=== PATIENT | male | born 1960 | race Caucasian/White ===

== ENCOUNTER 2023-04-27 11:24 | Inpatient (IN) | payer OTHER ==
[2023-04-27 13:28] VITALS: BMI 44.9
[2023-04-27] MEDS ORDERED: LOPERAMIDE HCL 2 MG CAPSULE PO PRN (15:42)
[2023-04-27] MEDS ORDERED: NALOXONE HCL 0.4 MG/ML VIAL IM PRN (15:42)
[2023-04-27] MEDS ORDERED: MAGNESIUM HYDROX 2400MG/30ML ORAL SUSPENSION 30 ML CUP PO PRN (15:42)
[2023-04-27] MEDS ORDERED: POLYETHYLENE GLYCOL (HEALTHYLAX) 3350 17 GM PACKET PO PRN (15:42)
[2023-04-27] MEDS ORDERED: BENZOCAINE/MENTHOL (CHLORASEPTIC ) LOZENGE MM PRN (15:42)
[2023-04-27] MEDS ORDERED: IBUPROFEN 600 MG TABLET (FP) PO PRN (15:42)
[2023-04-27] MEDS ORDERED: BISMUTH SUBSALICYLATE 524 MG/30 ML PO PRN (15:42)
[2023-04-27] MEDS ORDERED: NICOTINE POLACRILEX 2 MG GUM BUC PRN (15:42)
[2023-04-27] MEDS ORDERED: chlordiazePOXIDE HCL 25 MG CAPSULE PO PRN (15:42)
[2023-04-27] MEDS ORDERED: guaiFENesin 600 MG TABLET.ER (FP) PO PRN (15:42)
[2023-04-27] MEDS ORDERED: IBUPROFEN 400 MG TABLET (FP) PO PRN (15:42)
[2023-04-27] MEDS ORDERED: NALOXONE HCL (KLOXXADO) 8 MG SPRAY NS PRN (15:42)
[2023-04-27] MEDS ORDERED: ACETAMINOPHEN 325 MG TABLET (FP) PO PRN (15:42)
[2023-04-27] MEDS ORDERED: BENZONATATE 200 MG CAPSULE PO PRN (15:42)
[2023-04-27] MEDS ORDERED: DICYCLOMINE HCL 10 MG CAPSULE PO PRN (15:42)
[2023-04-27] MEDS ORDERED: ONDANSETRON *ODT* 4 MG TABLET SL PRN (15:42)
[2023-04-27] MEDS ORDERED: chlordiazePOXIDE HCL 25 MG CAPSULE ONE (17:01)
[2023-04-27] MEDS: chlordiazePOXIDE HCL 25 MG CAPSULE PO SCH ×2 (17:05→22:24)
[2023-04-27] MEDS: amLODIPine BESYLATE 10 MG TABLET (FP) PO SCH (19:35)
[2023-04-27] MEDS: MELATONIN 5 MG TABLETS PO SCH (22:24)
[2023-04-27] MEDS: THIAMINE HCL 100 MG TABLET (FP) PO SCH (22:24)
[2023-04-27 22:28] LABS: PH,URINE 5.5 (5.0-8.0); URINE APPEARANCE CLEAR; URINE BILIRUBIN NEGATIVE (NEGATIVE); URINE COLOR YELLOW; URINE GLUCOSE (UA) NEGATIVE (NEGATIVE); URINE KETONE NEGATIVE (NEGATIVE); URINE LEUK ESTERASE NEGATIVE (NEGATIVE); URINE NITRITE NEGATIVE (NEGATIVE); URINE PROTEIN NEGATIVE (NEGATIVE); URINE UROBILINOGEN 0.2 mg/dL (0.2-1.0)
[2023-04-28] MEDS: chlordiazePOXIDE HCL 25 MG CAPSULE PO SCH ×4 (05:50→22:45)
[2023-04-28] MEDS: NICOTINE 21 MG/24 HOURS TOPICAL PATCH TD SCH (10:02)
[2023-04-28] MEDS: hydrOXYzine PAMOATE 25 MG CAPSULE (FP) PO PRN (10:03)
[2023-04-28] MEDS: PRENATAL VITAMINS W/ FOLIC ACID TABLET (FP) PO SCH (10:03)
[2023-04-28] MEDS: METHOCARBAMOL 500 MG TABLET PO PRN (10:03)
[2023-04-28] MEDS: amLODIPine BESYLATE 10 MG TABLET (FP) PO SCH (10:03)
[2023-04-28 10:14] LABS: HEMATOCRIT 39.6 % (35.4-49); HEMOGLOBIN 13.1 GM/dL (11.7-16.9); MCH 29.4 pg (25.7-33.7); MEAN CELL VOLUME 89.1 fl (80-96); MEAN PLT VOLUME 7.5 fl (7.5-11.1); PLATELET COUNT 450 10^3/uL (134-434); RBC 4.45 M/mm3 (4.00-5.60); RDW 14.2 % (11.9-15.9); WHITE BLOOD COUNT 9.6 K/mm3 (4.0-10.0)
[2023-04-28 10:40] LABS: CHLORIDE 102 mmol/L (98-107); POTASSIUM 4.2 mmol/L (3.5-5.1); SODIUM 138 mmol/L (136-145)
[2023-04-28 10:42] LABS: BLOOD UREA NITROGEN 11.8 mg/dL (7-18); CALCIUM 8.3 mg/dL (8.5-10.1)
[2023-04-28 10:43] LABS: ALBUMIN 3.1 g/dl (3.4-5.0); ANION GAP 3 mmol/L (4-13); CO2 33 mmol/L (21-32); GLUCOSE,RANDOM 94 mg/dL (74-106)
[2023-04-28 10:46] LABS: CREATININE 0.9 mg/dL (0.55-1.3); SGOT/AST 31 U/L (15-37); SGPT/ALT 51 U/L (13-61)
[2023-04-28 10:48] LABS: BILIRUBIN,TOTAL 0.2 mg/dL (0.2-1); TOT PROT 6.4 g/dl (6.4-8.2)
[2023-04-28 10:49] LABS: ALK PHOS 92 U/L (45-117)
[2023-04-28] MEDS: ALBUTEROL SO4 2.5/IPRATROPIUM 0.5 INH SOL 3 ML VIAL.NEB. NEB SCH (19:00)
[2023-04-28] MEDS: predniSONE 20 MG TABLET (UD) PO SCH (19:10)
[2023-04-28] MEDS: THIAMINE HCL 100 MG TABLET (FP) PO SCH (22:45)
[2023-04-28] MEDS: MELATONIN 5 MG TABLETS PO SCH (22:49)
[2023-04-29] MEDS: chlordiazePOXIDE HCL 25 MG CAPSULE PO SCH ×4 (04:46→22:18)
[2023-04-29] MEDS: ALBUTEROL SO4 2.5/IPRATROPIUM 0.5 INH SOL 3 ML VIAL.NEB. NEB SCH ×4 (08:45→20:31)
[2023-04-29] MEDS: METHOCARBAMOL 500 MG TABLET PO PRN ×2 (10:28→22:19)
[2023-04-29] MEDS: PRENATAL VITAMINS W/ FOLIC ACID TABLET (FP) PO SCH (10:28)
[2023-04-29] MEDS: LISINOPRIL 10 MG TABLET PO SCH (10:28)
[2023-04-29] MEDS: hydrOXYzine PAMOATE 25 MG CAPSULE (FP) PO PRN (10:28)
[2023-04-29] MEDS: amLODIPine BESYLATE 10 MG TABLET (FP) PO SCH (10:28)
[2023-04-29] MEDS: predniSONE 20 MG TABLET (UD) PO SCH (10:31)
[2023-04-29] MEDS: BUDESONIDE/FORMETEROL FUMARATE 160/4.5 mcg INHALER IH SCH ×2 (10:31→22:19)
[2023-04-29] MEDS: NICOTINE 21 MG/24 HOURS TOPICAL PATCH TD SCH (10:32)
[2023-04-29] MEDS: MAG HYDROX/AL HYDROX/SIMETH 30 ML UNIT-DOSE CUP PO PRN (21:18)
[2023-04-29] MEDS: MELATONIN 5 MG TABLETS PO SCH (22:19)
[2023-04-29] MEDS: THIAMINE HCL 100 MG TABLET (FP) PO SCH (22:19)
[2023-04-30] MEDS ORDERED: chlordiazePOXIDE HCL 10 MG CAPSULE PO PRN
[2023-04-30] MEDS: ALBUTEROL SO4 2.5/IPRATROPIUM 0.5 INH SOL 3 ML VIAL.NEB. NEB SCH ×3 (00:28→07:43)
[2023-04-30] MEDS: chlordiazePOXIDE HCL 10 MG CAPSULE PO SCH ×4 (05:50→22:45)
[2023-04-30] MEDS: amLODIPine BESYLATE 10 MG TABLET (FP) PO SCH (10:59)
[2023-04-30] MEDS: PRENATAL VITAMINS W/ FOLIC ACID TABLET (FP) PO SCH (10:59)
[2023-04-30] MEDS: NICOTINE 21 MG/24 HOURS TOPICAL PATCH TD SCH (10:59)
[2023-04-30] MEDS: guaiFENesin/D-METHORPHAN TAB.ER.12H PO SCH ×2 (10:59→23:38)
[2023-04-30] MEDS: LISINOPRIL 10 MG TABLET PO SCH (10:59)
[2023-04-30] MEDS: BUDESONIDE/FORMETEROL FUMARATE 160/4.5 mcg INHALER IH SCH ×2 (11:00→22:45)
[2023-04-30] MEDS: predniSONE 20 MG TABLET (UD) PO SCH (11:01)
[2023-04-30] MEDS ORDERED: ALBUTEROL SO4 2.5/IPRATROPIUM 0.5 INH SOL 3 ML VIAL.NEB. NEB PRN (15:05)
[2023-04-30] MEDS ORDERED: ALBUTEROL SO4 2.5/IPRATROPIUM 0.5 INH SOL 3 ML VIAL.NEB. NEB SCH (15:15)
[2023-04-30] MEDS: METHOCARBAMOL 500 MG TABLET PO PRN (22:44)
[2023-04-30] MEDS: THIAMINE HCL 100 MG TABLET (FP) PO SCH (22:44)
[2023-04-30] MEDS: MELATONIN 5 MG TABLETS PO SCH (22:45)
[2023-05-01] MEDS: chlordiazePOXIDE HCL 10 MG CAPSULE PO SCH ×2 (05:48→17:14)
[2023-05-01] MEDS: amLODIPine BESYLATE 10 MG TABLET (FP) PO SCH (10:11)
[2023-05-01] MEDS: PRENATAL VITAMINS W/ FOLIC ACID TABLET (FP) PO SCH (10:11)
[2023-05-01] MEDS: NICOTINE 21 MG/24 HOURS TOPICAL PATCH TD SCH (10:11)
[2023-05-01] MEDS: LISINOPRIL 10 MG TABLET PO SCH (10:12)
[2023-05-01] MEDS: predniSONE 20 MG TABLET (UD) PO SCH (10:12)
[2023-05-01] MEDS: BUDESONIDE/FORMETEROL FUMARATE 160/4.5 mcg INHALER IH SCH ×2 (10:12→22:45)
[2023-05-01] MEDS: METHOCARBAMOL 500 MG TABLET PO PRN (10:13)
[2023-05-01] MEDS: hydrOXYzine PAMOATE 25 MG CAPSULE (FP) PO PRN ×2 (10:13→22:44)
[2023-05-01] MEDS: guaiFENesin 600 MG TABLET.ER (FP) PO SCH ×2 (10:20→22:45)
[2023-05-01] MEDS: THIAMINE HCL 100 MG TABLET (FP) PO SCH (22:44)
[2023-05-01] MEDS: MELATONIN 5 MG TABLETS PO SCH (22:44)
[2023-05-02] MEDS ORDERED: chlordiazePOXIDE HCL 10 MG CAPSULE PO ONE (05:00)
[2023-05-02] MEDS: PRENATAL VITAMINS W/ FOLIC ACID TABLET (FP) PO SCH (09:55)
[2023-05-02] MEDS: predniSONE 20 MG TABLET (UD) PO SCH (09:55)
[2023-05-02] MEDS: guaiFENesin 600 MG TABLET.ER (FP) PO SCH (09:55)
[2023-05-02] MEDS: amLODIPine BESYLATE 10 MG TABLET (FP) PO SCH (09:56)
[2023-05-02] MEDS: LISINOPRIL 10 MG TABLET PO SCH (09:56)
[2023-05-02] MEDS: NICOTINE 21 MG/24 HOURS TOPICAL PATCH TD SCH (09:57)
[2023-05-02] MEDS: BUDESONIDE/FORMETEROL FUMARATE 160/4.5 mcg INHALER IH SCH (09:57)
[2023-05-02] MEDS: MAG HYDROX/AL HYDROX/SIMETH 30 ML UNIT-DOSE CUP PO PRN (10:40)
[2023-05-02 12:56] VITALS: BP 144/75; PULSE 90; RESP 17; TEMP 97.7
== END 2023-05-02 13:05 | disposition other institution (70) | DRG 775 ==
LOC: SUATTDRO 11:24 → YASAS 11:24 → Y6N 16:38
PROVIDERS: ADMIT Allergy & Immunology; ATTEND Surgery
PROC: HZ2ZZZZ Detoxification Services for Substance Abuse Treatment (ICD-10-PCS; principal; 2023-04-27)
DX: F10.230 Alcohol dependence with withdrawal, uncomplicated (principal); F17.210 Nicotine dependence, cigarettes, uncomplicated; F32.A Depression, unspecified; G47.00 Insomnia, unspecified; I10 Essential (primary) hypertension; J44.1 Chronic obstructive pulmonary disease with (acute) exacerbation; E66.01 Morbid (severe) obesity due to excess calories; Z68.41 Body mass index [BMI] 40.0-44.9, adult; Z99.81 Dependence on supplemental oxygen; Z28.310 Unvaccinated for COVID-19; Z28.9 Immunization not carried out for unspecified reason; Z56.0 Unemployment, unspecified; Z59.00 Homelessness unspecified
CPT/HCPCS: 36415; 71046-TC-FY; 80053; 80307; 81003; 85027; 86780; 87635; 93005; 93010; 94640

== ENCOUNTER 2023-05-02 15:07 | Inpatient (IN) | payer OTHER ==
[~2023-05-02 15:07] MED LIST: ALBUTEROL SO4 0.083% IH SOL 2.5 MG/3 ML VIAL.NEB. NEB PRN; BENZONATATE 200 MG CAPSULE PO PRN; COLLOIDAL OATMEAL 1 BAR EACH TP PRN; IBUPROFEN 400 MG TABLET (FP) PO PRN; LOPERAMIDE HCL 2 MG CAPSULE PO PRN; MAGNESIUM HYDROX 2400MG/30ML ORAL SUSPENSION 30 ML CUP PO PRN; METHOCARBAMOL 500 MG TABLET PO PRN; NICOTINE 21 MG/24 HOURS TOPICAL PATCH TD PRN; NICOTINE POLACRILEX 4 MG GUM BUC PRN; POLYETHYLENE GLYCOL (HEALTHYLAX) 3350 17 GM PACKET PO PRN; guaiFENesin 600 MG TABLET.ER (FP) PO PRN
[2023-05-02] MEDS: MELATONIN 5 MG TABLETS PO SCH (21:15)
[2023-05-02] MEDS: THIAMINE HCL 100 MG TABLET (FP) PO SCH (21:15)
[2023-05-02] MEDS: MAG HYDROX/AL HYDROX/SIMETH 30 ML UNIT-DOSE CUP PO PRN (23:57)
[2023-05-03] MEDS: LISINOPRIL 10 MG TABLET PO SCH (10:25)
[2023-05-03] MEDS: PRENATAL VITAMINS W/ FOLIC ACID TABLET (FP) PO SCH (10:25)
[2023-05-03] MEDS: amLODIPine BESYLATE 10 MG TABLET (FP) PO SCH (10:25)
[2023-05-03] MEDS: MAG HYDROX/AL HYDROX/SIMETH 30 ML UNIT-DOSE CUP PO PRN (11:17)
[2023-05-03] MEDS ORDERED: PNEUMOC 20-VAL CONJ-DIP CRM/PF 0.5 ML SYRINGE IM ONE (12:00)
[2023-05-03] MEDS ORDERED: FLU VACCINE (FLULAVAL) PF 60 MCG/0.5 ML SYRINGE 2023-2024 IM ONE (12:00)
[2023-05-03] MEDS: BUDESONIDE/FORMETEROL FUMARATE 160/4.5 mcg INHALER IH SCH (21:38)
[2023-05-03] MEDS: THIAMINE HCL 100 MG TABLET (FP) PO SCH (21:39)
[2023-05-03] MEDS: MELATONIN 5 MG TABLETS PO SCH (21:39)
[2023-05-04] MEDS: BUDESONIDE/FORMETEROL FUMARATE 160/4.5 mcg INHALER IH SCH ×2 (10:22→21:51)
[2023-05-04] MEDS: LISINOPRIL 10 MG TABLET PO SCH (10:23)
[2023-05-04] MEDS: FLUoxetine HCL 10 MG CAPSULE PO SCH (10:23)
[2023-05-04] MEDS: hydrOXYzine PAMOATE 25 MG CAPSULE (FP) PO PRN ×2 (10:24→15:57)
[2023-05-04] MEDS: PRENATAL VITAMINS W/ FOLIC ACID TABLET (FP) PO SCH (10:24)
[2023-05-04] MEDS: amLODIPine BESYLATE 10 MG TABLET (FP) PO SCH (10:24)
[2023-05-04] MEDS: MAG HYDROX/AL HYDROX/SIMETH 30 ML UNIT-DOSE CUP PO PRN ×2 (10:56→21:52)
[2023-05-04] MEDS: THIAMINE HCL 100 MG TABLET (FP) PO SCH (21:52)
[2023-05-04] MEDS: MELATONIN 5 MG TABLETS PO SCH (21:52)
[2023-05-05] MEDS: hydrOXYzine PAMOATE 25 MG CAPSULE (FP) PO PRN (06:56)
[2023-05-05] MEDS: LISINOPRIL 10 MG TABLET PO SCH (10:21)
[2023-05-05] MEDS: amLODIPine BESYLATE 10 MG TABLET (FP) PO SCH (10:21)
[2023-05-05] MEDS: PRENATAL VITAMINS W/ FOLIC ACID TABLET (FP) PO SCH (10:21)
[2023-05-05] MEDS: FLUoxetine HCL 10 MG CAPSULE PO SCH (10:21)
[2023-05-05] MEDS: BUDESONIDE/FORMETEROL FUMARATE 160/4.5 mcg INHALER IH SCH ×2 (10:22→21:22)
[2023-05-05] MEDS: THIAMINE HCL 100 MG TABLET (FP) PO SCH (21:22)
[2023-05-05] MEDS: MELATONIN 5 MG TABLETS PO SCH (21:22)
[2023-05-05] MEDS: MAG HYDROX/AL HYDROX/SIMETH 30 ML UNIT-DOSE CUP PO PRN (21:22)
[2023-05-06] MEDS: FLUoxetine HCL 10 MG CAPSULE PO SCH (10:21)
[2023-05-06] MEDS: LISINOPRIL 10 MG TABLET PO SCH (10:21)
[2023-05-06] MEDS: amLODIPine BESYLATE 10 MG TABLET (FP) PO SCH (10:21)
[2023-05-06] MEDS: PRENATAL VITAMINS W/ FOLIC ACID TABLET (FP) PO SCH (10:21)
[2023-05-06] MEDS: BUDESONIDE/FORMETEROL FUMARATE 160/4.5 mcg INHALER IH SCH ×2 (10:21→21:36)
[2023-05-06] MEDS: ACETAMINOPHEN 325 MG TABLET (FP) PO PRN (17:02)
[2023-05-06] MEDS: THIAMINE HCL 100 MG TABLET (FP) PO SCH (21:40)
[2023-05-06] MEDS: MELATONIN 5 MG TABLETS PO SCH (21:40)
[2023-05-07] MEDS: hydrOXYzine PAMOATE 25 MG CAPSULE (FP) PO PRN (01:19)
[2023-05-07] MEDS: FLUoxetine HCL 10 MG CAPSULE PO SCH (10:27)
[2023-05-07] MEDS: LISINOPRIL 10 MG TABLET PO SCH (10:27)
[2023-05-07] MEDS: amLODIPine BESYLATE 10 MG TABLET (FP) PO SCH (10:27)
[2023-05-07] MEDS: PRENATAL VITAMINS W/ FOLIC ACID TABLET (FP) PO SCH (10:27)
[2023-05-07] MEDS: BUDESONIDE/FORMETEROL FUMARATE 160/4.5 mcg INHALER IH SCH ×2 (10:27→22:12)
[2023-05-07] MEDS: MAG HYDROX/AL HYDROX/SIMETH 30 ML UNIT-DOSE CUP PO PRN (10:28)
[2023-05-07] MEDS: MELATONIN 5 MG TABLETS PO SCH (22:10)
[2023-05-07] MEDS: THIAMINE HCL 100 MG TABLET (FP) PO SCH (22:10)
[2023-05-08] MEDS: hydrOXYzine PAMOATE 25 MG CAPSULE (FP) PO PRN (01:40)
[2023-05-08] MEDS: BUDESONIDE/FORMETEROL FUMARATE 160/4.5 mcg INHALER IH SCH ×2 (09:54→21:26)
[2023-05-08] MEDS: LISINOPRIL 10 MG TABLET PO SCH (09:54)
[2023-05-08] MEDS: FLUoxetine HCL 10 MG CAPSULE PO SCH (09:55)
[2023-05-08] MEDS: amLODIPine BESYLATE 10 MG TABLET (FP) PO SCH (09:55)
[2023-05-08] MEDS: PRENATAL VITAMINS W/ FOLIC ACID TABLET (FP) PO SCH (09:55)
[2023-05-08] MEDS: THIAMINE HCL 100 MG TABLET (FP) PO SCH (21:24)
[2023-05-08] MEDS: MELATONIN 5 MG TABLETS PO SCH (21:24)
[2023-05-09] MEDS: FLUoxetine HCL 10 MG CAPSULE PO SCH (10:22)
[2023-05-09] MEDS: PRENATAL VITAMINS W/ FOLIC ACID TABLET (FP) PO SCH (10:22)
[2023-05-09] MEDS: amLODIPine BESYLATE 10 MG TABLET (FP) PO SCH (10:22)
[2023-05-09] MEDS: LISINOPRIL 10 MG TABLET PO SCH (10:22)
[2023-05-09] MEDS: IBUPROFEN 600 MG TABLET (FP) PO PRN (10:23)
[2023-05-09] MEDS: BUDESONIDE/FORMETEROL FUMARATE 160/4.5 mcg INHALER IH SCH ×2 (10:24→22:19)
[2023-05-09] MEDS: MELATONIN 5 MG TABLETS PO SCH (22:18)
[2023-05-09] MEDS: THIAMINE HCL 100 MG TABLET (FP) PO SCH (22:19)
[2023-05-10] MEDS: PRENATAL VITAMINS W/ FOLIC ACID TABLET (FP) PO SCH (10:06)
[2023-05-10] MEDS: BUDESONIDE/FORMETEROL FUMARATE 160/4.5 mcg INHALER IH SCH ×2 (10:06→21:16)
[2023-05-10] MEDS: LISINOPRIL 10 MG TABLET PO SCH (10:07)
[2023-05-10] MEDS: FLUoxetine HCL 10 MG CAPSULE PO SCH (10:07)
[2023-05-10] MEDS: amLODIPine BESYLATE 10 MG TABLET (FP) PO SCH (10:07)
[2023-05-10] MEDS: THIAMINE HCL 100 MG TABLET (FP) PO SCH (21:16)
[2023-05-10] MEDS: MELATONIN 5 MG TABLETS PO SCH (21:16)
[2023-05-11] MEDS: BUDESONIDE/FORMETEROL FUMARATE 160/4.5 mcg INHALER IH SCH ×2 (09:47→21:31)
[2023-05-11] MEDS: LISINOPRIL 10 MG TABLET PO SCH (09:48)
[2023-05-11] MEDS: ACETAMINOPHEN 325 MG TABLET (FP) PO PRN (09:48)
[2023-05-11] MEDS: amLODIPine BESYLATE 10 MG TABLET (FP) PO SCH (09:48)
[2023-05-11] MEDS: PRENATAL VITAMINS W/ FOLIC ACID TABLET (FP) PO SCH (09:48)
[2023-05-11] MEDS: FLUoxetine HCL 10 MG CAPSULE PO SCH (09:48)
[2023-05-11] MEDS: THIAMINE HCL 100 MG TABLET (FP) PO SCH (21:31)
[2023-05-11] MEDS: MELATONIN 5 MG TABLETS PO SCH (21:31)
[2023-05-12] MEDS: PRENATAL VITAMINS W/ FOLIC ACID TABLET (FP) PO SCH (09:31)
[2023-05-12] MEDS: FLUoxetine HCL 10 MG CAPSULE PO SCH (09:31)
[2023-05-12] MEDS: LISINOPRIL 10 MG TABLET PO SCH (09:31)
[2023-05-12] MEDS: amLODIPine BESYLATE 10 MG TABLET (FP) PO SCH (09:31)
[2023-05-12] MEDS: BUDESONIDE/FORMETEROL FUMARATE 160/4.5 mcg INHALER IH SCH ×2 (09:31→21:30)
[2023-05-12] MEDS: ALBUTEROL SO4 HFA INHALER IH PRN (09:33)
[2023-05-12] MEDS: THIAMINE HCL 100 MG TABLET (FP) PO SCH (21:30)
[2023-05-12] MEDS: MELATONIN 5 MG TABLETS PO SCH (21:30)
[2023-05-13] MEDS: hydrOXYzine PAMOATE 25 MG CAPSULE (FP) PO PRN (06:06)
[2023-05-13] MEDS: ALBUTEROL SO4 HFA INHALER IH PRN (06:06)
[2023-05-13] MEDS: ALBUTEROL SO4 2.5/IPRATROPIUM 0.5 INH SOL 3 ML VIAL.NEB. NEB PRN (08:55)
[2023-05-13] MEDS: PRENATAL VITAMINS W/ FOLIC ACID TABLET (FP) PO SCH (09:59)
[2023-05-13] MEDS: FLUoxetine HCL 10 MG CAPSULE PO SCH (10:00)
[2023-05-13] MEDS: LISINOPRIL 10 MG TABLET PO SCH (10:00)
[2023-05-13] MEDS: amLODIPine BESYLATE 10 MG TABLET (FP) PO SCH (10:00)
[2023-05-13] MEDS: BUDESONIDE/FORMETEROL FUMARATE 160/4.5 mcg INHALER IH SCH ×2 (10:01→21:40)
[2023-05-13] MEDS: MELATONIN 5 MG TABLETS PO SCH (21:40)
[2023-05-13] MEDS: THIAMINE HCL 100 MG TABLET (FP) PO SCH (21:40)
[2023-05-14] MEDS: ALBUTEROL SO4 HFA INHALER IH PRN (06:10)
[2023-05-14] MEDS: hydrOXYzine PAMOATE 25 MG CAPSULE (FP) PO PRN (06:11)
[2023-05-14] MEDS: ALBUTEROL SO4 2.5/IPRATROPIUM 0.5 INH SOL 3 ML VIAL.NEB. NEB PRN (08:38)
[2023-05-14] MEDS: amLODIPine BESYLATE 10 MG TABLET (FP) PO SCH (09:20)
[2023-05-14] MEDS: LISINOPRIL 10 MG TABLET PO SCH (09:20)
[2023-05-14] MEDS: FLUoxetine HCL 10 MG CAPSULE PO SCH (09:20)
[2023-05-14] MEDS: PRENATAL VITAMINS W/ FOLIC ACID TABLET (FP) PO SCH (09:20)
[2023-05-14] MEDS: BUDESONIDE/FORMETEROL FUMARATE 160/4.5 mcg INHALER IH SCH ×2 (09:20→21:30)
[2023-05-14] MEDS: THIAMINE HCL 100 MG TABLET (FP) PO SCH (21:30)
[2023-05-14] MEDS: MELATONIN 5 MG TABLETS PO SCH (21:30)
[2023-05-15] MEDS: PRENATAL VITAMINS W/ FOLIC ACID TABLET (FP) PO SCH (09:21)
[2023-05-15] MEDS: BUDESONIDE/FORMETEROL FUMARATE 160/4.5 mcg INHALER IH SCH ×2 (09:21→21:20)
[2023-05-15] MEDS: ALBUTEROL SO4 2.5/IPRATROPIUM 0.5 INH SOL 3 ML VIAL.NEB. NEB PRN (09:21)
[2023-05-15] MEDS: FLUoxetine HCL 10 MG CAPSULE PO SCH (09:37)
[2023-05-15] MEDS: amLODIPine BESYLATE 10 MG TABLET (FP) PO SCH (10:21)
[2023-05-15] MEDS: LISINOPRIL 10 MG TABLET PO SCH (10:21)
[2023-05-15] MEDS: RIFAXIMIN 550 MG TABLET PO SCH ×2 (14:27→21:20)
[2023-05-15] MEDS: MELATONIN 5 MG TABLETS PO SCH (21:20)
[2023-05-15] MEDS: THIAMINE HCL 100 MG TABLET (FP) PO SCH (21:20)
[2023-05-16] MEDS: ALBUTEROL SO4 HFA INHALER IH PRN (06:33)
[2023-05-16] MEDS: hydrOXYzine PAMOATE 25 MG CAPSULE (FP) PO PRN (06:34)
[2023-05-16] MEDS: ALBUTEROL SO4 2.5/IPRATROPIUM 0.5 INH SOL 3 ML VIAL.NEB. NEB PRN (08:31)
[2023-05-16] MEDS: BUDESONIDE/FORMETEROL FUMARATE 160/4.5 mcg INHALER IH SCH ×2 (10:09→21:19)
[2023-05-16] MEDS: FLUoxetine HCL 10 MG CAPSULE PO SCH (10:10)
[2023-05-16] MEDS: LISINOPRIL 10 MG TABLET PO SCH (10:10)
[2023-05-16] MEDS: RIFAXIMIN 550 MG TABLET PO SCH ×2 (10:10→21:19)
[2023-05-16] MEDS: amLODIPine BESYLATE 10 MG TABLET (FP) PO SCH (10:10)
[2023-05-16] MEDS: PRENATAL VITAMINS W/ FOLIC ACID TABLET (FP) PO SCH (10:10)
[2023-05-16] MEDS: MELATONIN 5 MG TABLETS PO SCH (21:19)
[2023-05-16] MEDS: THIAMINE HCL 100 MG TABLET (FP) PO SCH (21:19)
[2023-05-17] MEDS: hydrOXYzine PAMOATE 25 MG CAPSULE (FP) PO PRN (06:14)
[2023-05-17] MEDS: ALBUTEROL SO4 HFA INHALER IH PRN (06:14)
[2023-05-17] MEDS: LISINOPRIL 10 MG TABLET PO SCH (09:17)
[2023-05-17] MEDS: PRENATAL VITAMINS W/ FOLIC ACID TABLET (FP) PO SCH (09:17)
[2023-05-17] MEDS: FLUoxetine HCL 10 MG CAPSULE PO SCH (09:17)
[2023-05-17] MEDS: BUDESONIDE/FORMETEROL FUMARATE 160/4.5 mcg INHALER IH SCH ×2 (09:17→21:37)
[2023-05-17] MEDS: amLODIPine BESYLATE 10 MG TABLET (FP) PO SCH (09:17)
[2023-05-17] MEDS: RIFAXIMIN 550 MG TABLET PO SCH ×2 (09:17→21:37)
[2023-05-17] MEDS: MELATONIN 5 MG TABLETS PO SCH (21:37)
[2023-05-17] MEDS: THIAMINE HCL 100 MG TABLET (FP) PO SCH (21:37)
[2023-05-18] MEDS: BUDESONIDE/FORMETEROL FUMARATE 160/4.5 mcg INHALER IH SCH ×2 (10:09→21:41)
[2023-05-18] MEDS: amLODIPine BESYLATE 10 MG TABLET (FP) PO SCH (10:09)
[2023-05-18] MEDS: ALBUTEROL SO4 HFA INHALER IH PRN (10:09)
[2023-05-18] MEDS: RIFAXIMIN 550 MG TABLET PO SCH ×2 (10:09→21:41)
[2023-05-18] MEDS: LISINOPRIL 10 MG TABLET PO SCH (10:09)
[2023-05-18] MEDS: PRENATAL VITAMINS W/ FOLIC ACID TABLET (FP) PO SCH (10:09)
[2023-05-18] MEDS: FLUoxetine HCL 10 MG CAPSULE PO SCH (10:09)
[2023-05-18] MEDS: MAG HYDROX/AL HYDROX/SIMETH 30 ML UNIT-DOSE CUP PO PRN (11:25)
[2023-05-18] MEDS: THIAMINE HCL 100 MG TABLET (FP) PO SCH (21:41)
[2023-05-18] MEDS: MELATONIN 5 MG TABLETS PO SCH (21:41)
[2023-05-19] MEDS: BUDESONIDE/FORMETEROL FUMARATE 160/4.5 mcg INHALER IH SCH ×2 (09:50→21:25)
[2023-05-19] MEDS: FLUoxetine HCL 10 MG CAPSULE PO SCH (09:50)
[2023-05-19] MEDS: ALBUTEROL SO4 HFA INHALER IH PRN (09:50)
[2023-05-19] MEDS: PRENATAL VITAMINS W/ FOLIC ACID TABLET (FP) PO SCH (09:50)
[2023-05-19] MEDS: LISINOPRIL 10 MG TABLET PO SCH (09:50)
[2023-05-19] MEDS: RIFAXIMIN 550 MG TABLET PO SCH ×2 (09:50→21:25)
[2023-05-19] MEDS: amLODIPine BESYLATE 10 MG TABLET (FP) PO SCH (09:50)
[2023-05-19] MEDS: THIAMINE HCL 100 MG TABLET (FP) PO SCH (21:25)
[2023-05-19] MEDS: MELATONIN 5 MG TABLETS PO SCH (21:25)
[2023-05-20] MEDS: PRENATAL VITAMINS W/ FOLIC ACID TABLET (FP) PO SCH (09:30)
[2023-05-20] MEDS: RIFAXIMIN 550 MG TABLET PO SCH ×2 (09:30→21:38)
[2023-05-20] MEDS: BUDESONIDE/FORMETEROL FUMARATE 160/4.5 mcg INHALER IH SCH ×2 (09:30→21:37)
[2023-05-20] MEDS: amLODIPine BESYLATE 10 MG TABLET (FP) PO SCH (09:30)
[2023-05-20] MEDS: FLUoxetine HCL 10 MG CAPSULE PO SCH (09:31)
[2023-05-20] MEDS: LISINOPRIL 10 MG TABLET PO SCH (09:31)
[2023-05-20] MEDS: MELATONIN 5 MG TABLETS PO SCH (21:37)
[2023-05-20] MEDS: THIAMINE HCL 100 MG TABLET (FP) PO SCH (21:38)
[2023-05-21] MEDS: LISINOPRIL 10 MG TABLET PO SCH (09:22)
[2023-05-21] MEDS: PRENATAL VITAMINS W/ FOLIC ACID TABLET (FP) PO SCH (09:22)
[2023-05-21] MEDS: RIFAXIMIN 550 MG TABLET PO SCH ×2 (09:22→21:24)
[2023-05-21] MEDS: FLUoxetine HCL 20 MG CAPSULE PO SCH (09:22)
[2023-05-21] MEDS: BUDESONIDE/FORMETEROL FUMARATE 160/4.5 mcg INHALER IH SCH ×2 (09:22→21:24)
[2023-05-21] MEDS: amLODIPine BESYLATE 10 MG TABLET (FP) PO SCH (09:23)
[2023-05-21] MEDS: MELATONIN 5 MG TABLETS PO SCH (21:24)
[2023-05-21] MEDS: THIAMINE HCL 100 MG TABLET (FP) PO SCH (21:24)
[2023-05-22] MEDS: LISINOPRIL 10 MG TABLET PO SCH (10:15)
[2023-05-22] MEDS: RIFAXIMIN 550 MG TABLET PO SCH ×2 (10:15→21:13)
[2023-05-22] MEDS: BUDESONIDE/FORMETEROL FUMARATE 160/4.5 mcg INHALER IH SCH ×2 (10:15→21:12)
[2023-05-22] MEDS: PRENATAL VITAMINS W/ FOLIC ACID TABLET (FP) PO SCH (10:15)
[2023-05-22] MEDS: amLODIPine BESYLATE 10 MG TABLET (FP) PO SCH (10:15)
[2023-05-22] MEDS: FLUoxetine HCL 20 MG CAPSULE PO SCH (10:15)
[2023-05-22] MEDS: MELATONIN 5 MG TABLETS PO SCH (21:12)
[2023-05-22] MEDS: THIAMINE HCL 100 MG TABLET (FP) PO SCH (21:12)
[2023-05-23] MEDS: PRENATAL VITAMINS W/ FOLIC ACID TABLET (FP) PO SCH (09:17)
[2023-05-23] MEDS: RIFAXIMIN 550 MG TABLET PO SCH ×2 (09:17→21:28)
[2023-05-23] MEDS: BUDESONIDE/FORMETEROL FUMARATE 160/4.5 mcg INHALER IH SCH ×2 (09:17→21:28)
[2023-05-23] MEDS: amLODIPine BESYLATE 10 MG TABLET (FP) PO SCH (09:18)
[2023-05-23] MEDS: LISINOPRIL 10 MG TABLET PO SCH (09:18)
[2023-05-23] MEDS: FLUoxetine HCL 20 MG CAPSULE PO SCH (09:18)
[2023-05-23] MEDS: BENZOCAINE/MENTHOL (CHLORASEPTIC ) LOZENGE MM PRN (12:01)
[2023-05-23] MEDS: MELATONIN 5 MG TABLETS PO SCH (21:28)
[2023-05-23] MEDS: THIAMINE HCL 100 MG TABLET (FP) PO SCH (21:28)
[2023-05-24] MEDS: FLUoxetine HCL 20 MG CAPSULE PO SCH (10:11)
[2023-05-24] MEDS: LISINOPRIL 10 MG TABLET PO SCH (10:11)
[2023-05-24] MEDS: amLODIPine BESYLATE 10 MG TABLET (FP) PO SCH (10:11)
[2023-05-24] MEDS: RIFAXIMIN 550 MG TABLET PO SCH ×2 (10:11→21:25)
[2023-05-24] MEDS: BUDESONIDE/FORMETEROL FUMARATE 160/4.5 mcg INHALER IH SCH ×2 (10:11→21:25)
[2023-05-24] MEDS: ALBUTEROL SO4 HFA INHALER IH PRN (10:11)
[2023-05-24] MEDS: PRENATAL VITAMINS W/ FOLIC ACID TABLET (FP) PO SCH (10:11)
[2023-05-24] MEDS: BENZOCAINE/MENTHOL (CHLORASEPTIC ) LOZENGE MM PRN (10:12)
[2023-05-24] MEDS: MELATONIN 5 MG TABLETS PO SCH (21:25)
[2023-05-24] MEDS: THIAMINE HCL 100 MG TABLET (FP) PO SCH (21:25)
[2023-05-25] MEDS: BUDESONIDE/FORMETEROL FUMARATE 160/4.5 mcg INHALER IH SCH ×2 (10:22→21:41)
[2023-05-25] MEDS: FLUoxetine HCL 20 MG CAPSULE PO SCH (10:22)
[2023-05-25] MEDS: PRENATAL VITAMINS W/ FOLIC ACID TABLET (FP) PO SCH (10:23)
[2023-05-25] MEDS: RIFAXIMIN 550 MG TABLET PO SCH ×2 (10:23→21:41)
[2023-05-25] MEDS: amLODIPine BESYLATE 10 MG TABLET (FP) PO SCH (10:23)
[2023-05-25] MEDS: LISINOPRIL 10 MG TABLET PO SCH (10:23)
[2023-05-25] MEDS: THIAMINE HCL 100 MG TABLET (FP) PO SCH (21:41)
[2023-05-25] MEDS: MELATONIN 5 MG TABLETS PO SCH (21:41)
[2023-05-26] MEDS: BENZOCAINE/MENTHOL (CHLORASEPTIC ) LOZENGE MM PRN (06:16)
[2023-05-26] MEDS: IBUPROFEN 600 MG TABLET (FP) PO PRN (06:16)
[2023-05-26] MEDS: FLUoxetine HCL 20 MG CAPSULE PO SCH (09:07)
[2023-05-26] MEDS: BUDESONIDE/FORMETEROL FUMARATE 160/4.5 mcg INHALER IH SCH ×2 (09:07→21:40)
[2023-05-26] MEDS: RIFAXIMIN 550 MG TABLET PO SCH ×2 (09:07→21:40)
[2023-05-26] MEDS: PRENATAL VITAMINS W/ FOLIC ACID TABLET (FP) PO SCH (09:07)
[2023-05-26] MEDS: LISINOPRIL 10 MG TABLET PO SCH (09:08)
[2023-05-26] MEDS: amLODIPine BESYLATE 10 MG TABLET (FP) PO SCH (09:08)
[2023-05-26] MEDS: MELATONIN 5 MG TABLETS PO SCH (21:40)
[2023-05-26] MEDS: THIAMINE HCL 100 MG TABLET (FP) PO SCH (21:41)
[2023-05-27] MEDS: BENZOCAINE/MENTHOL (CHLORASEPTIC ) LOZENGE MM PRN (09:26)
[2023-05-27] MEDS: BUDESONIDE/FORMETEROL FUMARATE 160/4.5 mcg INHALER IH SCH ×2 (09:26→21:43)
[2023-05-27] MEDS: FLUoxetine HCL 20 MG CAPSULE PO SCH (09:26)
[2023-05-27] MEDS: IBUPROFEN 600 MG TABLET (FP) PO PRN (09:27)
[2023-05-27] MEDS: LISINOPRIL 10 MG TABLET PO SCH (09:27)
[2023-05-27] MEDS: amLODIPine BESYLATE 10 MG TABLET (FP) PO SCH (09:27)
[2023-05-27] MEDS: PRENATAL VITAMINS W/ FOLIC ACID TABLET (FP) PO SCH (09:27)
[2023-05-27] MEDS: RIFAXIMIN 550 MG TABLET PO SCH ×2 (10:14→21:42)
[2023-05-27] MEDS: MELATONIN 5 MG TABLETS PO SCH (21:42)
[2023-05-27] MEDS: THIAMINE HCL 100 MG TABLET (FP) PO SCH (21:42)
[2023-05-28 07:05] VITALS: TEMP 97.8
[2023-05-28] MEDS: FLUoxetine HCL 20 MG CAPSULE PO SCH (09:57)
[2023-05-28] MEDS: amLODIPine BESYLATE 10 MG TABLET (FP) PO SCH (09:57)
[2023-05-28] MEDS: BUDESONIDE/FORMETEROL FUMARATE 160/4.5 mcg INHALER IH SCH ×2 (09:57→21:18)
[2023-05-28] MEDS: LISINOPRIL 10 MG TABLET PO SCH (09:57)
[2023-05-28] MEDS: PRENATAL VITAMINS W/ FOLIC ACID TABLET (FP) PO SCH (09:57)
[2023-05-28] MEDS: RIFAXIMIN 550 MG TABLET PO SCH ×2 (09:57→21:17)
[2023-05-28] MEDS: hydrOXYzine PAMOATE 25 MG CAPSULE (FP) PO PRN (14:02)
[2023-05-28] MEDS: MELATONIN 5 MG TABLETS PO SCH (21:17)
[2023-05-28] MEDS: THIAMINE HCL 100 MG TABLET (FP) PO SCH (21:17)
[2023-05-29 09:45] VITALS: BP 141/78; PULSE 74; RESP 18
[2023-05-29] MEDS: BUDESONIDE/FORMETEROL FUMARATE 160/4.5 mcg INHALER IH SCH (10:23)
[2023-05-29] MEDS: RIFAXIMIN 550 MG TABLET PO SCH (10:23)
[2023-05-29] MEDS: LISINOPRIL 10 MG TABLET PO SCH (10:24)
[2023-05-29] MEDS: PRENATAL VITAMINS W/ FOLIC ACID TABLET (FP) PO SCH (10:24)
[2023-05-29] MEDS: FLUoxetine HCL 20 MG CAPSULE PO SCH (10:24)
[2023-05-29] MEDS: amLODIPine BESYLATE 10 MG TABLET (FP) PO SCH (10:24)
== END 2023-05-29 14:45 | disposition home or self-care (01) | DRG 772 ==
LOC: YASAS 15:07 → Y3W 15:09
PROVIDERS: ADMIT Allergy & Immunology; ATTEND Psychiatry & Neurology Pain Medicine
PROC: HZ42ZZZ Group Counseling for Substance Abuse Treatment, Cognitive-Behavioral (ICD-10-PCS; principal; 2023-05-02)
DX: F10.20 Alcohol dependence, uncomplicated (principal); F17.210 Nicotine dependence, cigarettes, uncomplicated; F32.A Depression, unspecified; F41.9 Anxiety disorder, unspecified; E72.20 Disorder of urea cycle metabolism, unspecified; I10 Essential (primary) hypertension; E66.01 Morbid (severe) obesity due to excess calories; Z68.41 Body mass index [BMI] 40.0-44.9, adult; Z56.0 Unemployment, unspecified; Z59.00 Homelessness unspecified
CPT/HCPCS: 0241U-QW; 36415; 82140; 82652; 83036; 83735; 86803; 87070; 90677; 90686; 94640; G0008